=== PATIENT | male | born 1950 | race Caucasian/White ===

== ENCOUNTER 2018-06-25 08:15 | Outpatient (RCR) | payer MEDICARE, BC, OTHER | END 2018-07-11 | LOC: M CR 08:15 | DX: Z98.61 Coronary angioplasty status (principal) | CPT/HCPCS: 93798 ==

== ENCOUNTER 2018-07-23 12:00 | Outpatient (RCR) | payer MEDICARE, BC, OTHER | END 2018-08-10 | LOC: M CR 12:00 | DX: Z98.61 Coronary angioplasty status (principal) | CPT/HCPCS: 93798 ==